=== PATIENT | male | born 1940 | race Caucasian/White ===

== ENCOUNTER 2019-03-30 11:25 | Outpatient (CLI) | payer MEDICARE, BC, SELFPAY ==
[2019-03-30 12:40] VITALS: BP 113/76; PULSE 71; RESP 18; TEMP 36.3; O2SAT 94
[2019-03-30] MEDS: Lactated Ringers 1,000 ML 80 ML IV (13:48)
[2019-03-30] MEDS: fentaNYL 100 MCG/2 ML VIAL IVP (13:55)
[2019-03-30 14:18] VITALS: BP 169/103; PULSE 85; RESP 16; O2SAT 95
[2019-03-30 14:21] VITALS: BP 163/92; PULSE 70; RESP 16; O2SAT 97
--- NOTE | 2019-03-30 14:23 | PDOC.PAIN ---
Pain Clinic Procedure Note Procedure Note Procedure Note: Right Knee Radiofrequency with Coolief Machine PROCEDURE NOTE Date of Service: March 30, 2019 Patient: DOMENIC PEDRO Provider: Ger Florian DO, MPH Pre Operative Diagnosis: Right knee osteoarthritis Post Operative Diagnosis: Right knee osteoarthritis PROCEDURE: 1. Superolateral genicular branch from the vastus lateralis 2. Superomedial genicular branch from the vastus medialis 3. Inferomedial genicular branch from the saphenous nerve 4. Terminal branch of the nerve vastus intermedius Per cardiology: Patient has been off Eliquis for 3 days and a magnet is being placed over his pacemaker for the entire procedure. I did explain this to the patient and his prior to the procedure. The patient has Parkinson's Disease and has difficulty with cognition. The patient's did sign consent for the patient. DOMENIC PEDRO was brought into brought to the procedure room and placed on the exam table in a comfortable supine position. The place for needle placement was obtained by manual palpation with radiographic confirmation. The sterile field was prepared by chloroprep and sterile drapes. Local anesthesia superficial and deep was provided by local infiltration of 2% Lidocaine. A 17g 50 mm radiofrequency introducer needle with a 4mm active tip was placed overlying the right knee joint and using fluoroscopic guidance the needle was advanced to a bony endpoint on the superiolateral portion of the femoral condyle of the [Right/left knee]. A second needle was advanced to a bony endpoint on the superiomedial portion of the femoral condyle. A third needle was then placed over the inferiomedial portion of the tibial condyle until a bony endpoint was met. A fourth needle was placed from lateral to medial with the tip of the needle 2 fingerbreaths superior to the top of the kneecap in the middle of the anterior femural shaft. Attempted aspiration yielded no blood. Lateral x-ray views showed all the needles at 50% depth of the femur and tibia. Motor stimulation was tested ad 2.0 volts with no leg movement. Images were saved in AP and lateral. A mixture consisting of 2% was slowly injected. Then a radiofrequency ablation of each of the genicular nerves were done at 80 degrees Celsius for 2 minutes and 30 seconds each. After the ablation, a mixture of 1/4 cc of Depomedrol (40 mg/cc) and 1 cc of 0.5% Bupivacaine were injected at each segmental nerve. The needles were withdrawn. POST PROCEDURE EVALUATION: IMPRESSION: 1. Successful procedure. Follow up plans and appointments were discussed with the DOMENIC . Post procedure instruction was given as documented in nursing documentation and having met discharge criteria, [facility]. COMMENTS: No complications. F/U with our office as needed. I personally performed this entire procedure. Ger Florian DO, MPH Attending Physician
[2019-03-30] MEDS: methylPREDNISolone ACETATE 40 MG/ML VIAL IJ (14:37)
[2019-03-30] MEDS: Bupivacaine 0.5% Pres-Free 10 ML VIAL IJ (14:48)
[2019-03-30] MEDS: Lidocaine 2% Pres-Free 5 ML VIAL IJ (14:49)
--- NOTE | 2019-03-30 14:57 | DI.RAD_ITS ---
EXAM: XR PAIN CLINIC FLUORO JOINT IN CLINICAL HISTORY: DX: Osteoarthritis of the Right Knee. TECHNIQUE: Fluoroscopy was provided for the referring physician for guidance with performing injecti on procedure. COMPARISON: No exams were available for comparison FINDINGS: Please see procedure note for details. Fluoro Time: 34.0 seconds
== END 2019-03-30 11:45 ==
PROVIDERS: Visit Provider Preventive Medicine Occupational Medicine
DX: M17.11 Unilateral primary osteoarthritis, right knee (principal)
CPT/HCPCS: 64640 ×4; 77002; J1030; J3010